=== PATIENT | male | born 1990 | race Caucasian/White ===

== ENCOUNTER 2018-07-31 09:35 | Day surgery (SDC) | payer OTHER | END 2018-07-31 14:55 | disposition home or self-care (01) | LOC: AMB-ENDOS 09:35 | DX: K64.8 Other hemorrhoids (principal); K62.5 Hemorrhage of anus and rectum ==

== ENCOUNTER 2018-09-22 20:35 | Inpatient (IN) | payer OTHER ==
[~2018-09-22] VITALS: Ht 182.9 cm; Wt 92.5 kg
[2018-09-24] MEDS ORDERED: PERCOCET 5-3251 EACH PO (10:40)
[2018-09-24] MEDS ORDERED: NEURONTIN300 MG PO (10:40)
[2018-09-24] MEDS ORDERED: RECTICARE30 GM TOP (10:40)
== END 2018-09-24 15:53 | disposition home or self-care (01) | DRG 348 ==
LOC: ER 20:35 → SEC-K 09-23 08:30 → SURH 09-23 08:30
PROVIDERS: Surgery
PROC: 30233N1 Transfusion of Nonautologous Red Blood Cells into Peripheral Vein, Percutaneous Approach (ICD-10-PCS; 2018-09-23)
PROC: 3E0T3BZ Introduction of Anesthetic Agent into Peripheral Nerves and Plexi, Percutaneous Approach (ICD-10-PCS; 2018-09-24)
PROC: 06BY0ZC Excision of Hemorrhoidal Plexus, Open Approach (ICD-10-PCS; principal; 2018-09-24 10:30)
DX: K64.8 Other hemorrhoids (principal); K62.5 Hemorrhage of anus and rectum; D64.89 Other specified anemias